=== PATIENT | male | born 1985 | race Two or more races ===

== ENCOUNTER → 2018-01-16 | Outpatient (CLI) | payer BC ==
--- NOTE | 2018-01-16 08:50 | RADIOLOGY REPORT (SQ) ---
EXAM DESCRIPTION: MRI LT LOWER JOINT WITHOUT COMPLETED DATE/TIME: 01/16/2018 8:33 am REASON FOR STUDY: OTHER DERANGEMENTS OF PATELLA, LEFT KNEE (M22.3X2) M22.3X2 OTHER DERANGEMENTS OF PATELLA, LEFT KNEE COMPARISON: None. TECHNIQUE: Leftknee images acquired and stored on PACS. Multiplanar images include fat sensitive se quences as T1, water sensitive sequences as FST2 or STIR, cartilage sensitive sequences as FSPD, and gradient echo sequences. LIMITATIONS: None. FINDINGS: JOINT AND BURSAE: No effusion. BONE CORTEX AND MARROW: No alteration of signal to suggest marrow replacement. No worrisome bone lesi ons. No occult fracture. ACL: Intact. PCL: Intact. MCL: Intact. LCL: Intact. MEDIAL MENISCUS: No tears. No abnormal signal. LATERAL MENISCUS: No tears. No abnormal signal. MEDIAL COMPARTMENT: Cartilage preserved. No bone bruises or reactive marrow edema. No osteophytes. LATERAL COMPARTMENT: Cartilage preserved. No bone bruises or reactive marrow edema. No osteophytes. PATELLA: No chondromalacia. No subchondral cysts. Medial and lateral retinacula intact. EXTENSOR MECHANISM: Generally intact. Some scar in the suprapatellar fat pad may reflect impingement . SOFT TISSUES: Minimal prepatellar bursitis. No significant popliteal cyst. Appropriate vascular kera w voids. OTHER: No other significant finding. IMPRESSION: 1. Changes which may reflect suprapatellar fat pad impingement. 2. 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 No overt meniscus tear. Cruciate and collateral ligament s are generally intact. No focal chondral lesions. TECHNICAL DOCUMENTATION: JOB ID: [id number]- All Rights Reserved Reading location - IP/workstation name: [email or web address]
== END ==
LOC: RAD 07:44
PROVIDERS: ATTEND Family Medicine
DX: M22.3X2 Other derangements of patella, left knee (principal)